=== PATIENT | female | born 1985 | race Caucasian/White ===

== ENCOUNTER 2016-10-29 13:22 | Emergency (ER) | payer OTHER ==
[~2016-10-29] VITALS: Ht 149.9 cm; Wt 60.2 kg
[~2016-10-29 13:22] MED LIST: CIPRO500 MG PO; NATALCARE RX1 TABLET PO; TRAMADOL HCL50 MG PO; TYLENOL WITH C1 EACH PO; ULTRAM50 MG PO; Vicodin,Norco 5/325 PO; WELLBUTRIN XL300 MG PO; ZOFRAN4 MG PO
[2016-10-29 14:06] LABS: ADD MIUA? YES; BILIRUBIN SMALL; BLOOD NEGATIVE; COLOR AMBER ((YELLOW)); GLUCOSE (STRIP) NEGATIVE; KETONES 5; LEUKOCYTES MODERATE; NITRITE NEGATIVE; PROTEIN (STRIP) 100; SPECIFIC GRAVITY 1.042 (1.000-1.030)
[2016-10-29 14:12] LABS: EOSINOPHIL (%) 1.3 % (0-5); IMMATURE GRANULOCYTE (%) 0.3 % (0.0-0.7); IMMATURE GRANULOCYTE COUNT 0.1 K/uL; LYMPHOCYTE COUNT 1.4 K/uL (1.0-2.8); MCH 30.8 PG (29.0-34.0); MCHC 35.5 G/DL (30.0-36.0); MCV 86.8 FL (83-99); MEAN PLAT.VOLUME 10.1 uM^3 (9.5-12.4); MONOCYTE (%) 9.2 % (3-12); MONOCYTE COUNT 0.3 K/uL (0-0.8); NEUTROPHIL (%) 43.7 % (45-76); NEUTROPHIL COUNT 1.3 K/uL (1.8-6.4); PLATELET COUNT 179 K/uL (156-360); RBC DIS.WIDTH-CV 11.9 % (11.8-14.6); RBC DIS.WIDTH-SD 37.1 % (39-53); RED BLOOD COUNT 4.38 M/uL (3.80-5.20); WHITE BLOOD COUNT 3.1 K/uL (4.1-10.2)
[2016-10-29 14:13] LABS: BACTERIA NONE SEEN /HPF; EPITHELIAL CELLS 2+ /HPF; MUCUS 4+ /LPF; RED BLOOD CELLS 0-5 /HPF (0-5); WHITE BLOOD CELLS 0-5 /HPF (0-5)
[2016-10-29 14:20] LABS: CHLORIDE 104 mEq/L (99-109); POTASSIUM 3.6 mEq/L (3.7-5.4); SODIUM 135 mEq/L (136-147)
[2016-10-29 14:23] LABS: GLUCOSE 72 mg/dL (70-99)
[2016-10-29 14:24] LABS: ANION GAP 7 MEQ/L (2-14); TOTAL BILIRUBIN 0.9 mg/dL (0.0-1.0)
[2016-10-29 14:26] LABS: ALKALINE PHOSPHATASE 64 IU/L (3-129); GFR ESTIMATE (CALCULATED) > 59 mL/min/
[2016-10-29 14:27] LABS: UREA NITROGEN (BUN) 16 mg/dL (9-23)
[2016-10-29 14:30] LABS: LIPASE 8 U/L (1.0-51.0)
[2016-10-29 14:38] LABS: QUANTITATIVE HCG < 4.0 MIU/ML
[2016-10-29] MEDS ORDERED: PHENERGAN25 MG PR (14:51)
[2016-10-29] MEDS ORDERED: BENTYL20 MG PO (14:51)
[2016-10-29] MEDS ORDERED: ULTRACET1 TABLET PO (14:51)
[2016-10-29] MEDS ORDERED: PROMETHAZINE HC25 M1 PO (14:51)
[2016-10-29 15:27] VITALS: BP 121/89
== END 2016-10-29 15:28 | disposition home or self-care (01) ==
LOC: EME 13:22
PROVIDERS: Physician Assistant
DX: R10.12 Left upper quadrant pain (principal); R11.2 Nausea with vomiting, unspecified; E86.0 Dehydration
CPT/HCPCS: 80053; 81003; 83690; 84702; 85025; 99281; 99285; J0500; J1885

== ENCOUNTER → 2017-12-25 | Outpatient (CLI) | payer OTHER ==
[~2017-12-25] MED LIST changes: +BENTYL20 MG PO; +PHENERGAN25 MG PR; +PROMETHAZINE HC25 M1 PO; +ULTRACET1 TABLET PO
== END | disposition home or self-care (01) ==
LOC: NUC 08:29
DX: K31.84 Gastroparesis (principal); R11.14 Bilious vomiting
CPT/HCPCS: 78264; A9541